=== PATIENT | female | born 1945 | race African-American/Black ===

== ENCOUNTER 2022-02-11 20:11 | Emergency (ER) | payer MEDICARE ==
[~2022-02-11] VITALS: Ht 170.2 cm; Wt 57.0 kg
[2022-02-11] MEDS ORDERED: MORPHINE SULFATE 2 MG/ML CPJ (NOT FOR IM USE) IV ONE (20:45)
[2022-02-11 22:15] LABS: HEMATOCRIT. 31.4 % (36.0-48.0); HEMOGLOBIN. 10.3 g/dL (12.0-16.0); MEAN CORPUSCULAR HEMOGLOBIN 31.8 pg (28.0-32.0); MEAN CORPUSCULAR VOLUME 96.7 fL (81.0-99.0); MEAN PLATELET VOLUME 8.3 fl (7.4-10.4); PLATELET 193 x1000/uL (130-400); RED BLOOD CELL COUNT 3.25 mill/uL (4.2-5.4); RED CELL DISTRIBUTION WIDTH 12.9 % (11.6-14.6)
[2022-02-11 22:16] LABS: CHLORIDE 101 mEq/L (98-107)
[2022-02-11 22:54] LABS: PLATELET ESTIMATE NORMAL
[2022-02-12 01:03] VITALS: BP 154/82
== END 2022-02-12 01:09 | disposition left against medical advice (07) ==
LOC: ER 20:11
DX: R07.89 Other chest pain (principal); R94.31 Abnormal electrocardiogram [ECG] [EKG]; I25.10 Atherosclerotic heart disease of native coronary artery without angina pectoris; D64.9 Anemia, unspecified; D72.819 Decreased white blood cell count, unspecified; I10 Essential (primary) hypertension; Z95.5 Presence of coronary angioplasty implant and graft
CPT/HCPCS: 36415; 71045; 80053; 83880; 84484; 85025; 93005; 99285